=== PATIENT | male | born 1970 | race Two or more races ===

== ENCOUNTER → 2022-09-16 | Outpatient (CLI) | payer MEDICAID | END | disposition home or self-care (01) | LOC: Rad HDHVI 14:50 | PROVIDERS: ATTEND Internal Medicine Cardiovascular Disease | DX: R00.2 Palpitations (principal); R06.02 Shortness of breath | CPT/HCPCS: 93306 ==

== ENCOUNTER → 2022-09-18 | Outpatient (CLI) | payer MEDICAID ==
[~2022-09-18] VITALS: Ht 177.8 cm; Wt 113.4 kg
[~2022-09-18] MED LIST: ADENOSINE 90 MG/30 ML INJ IV ONE; ADENOSINE 95 MG in GIVE UN-DILUTED 0 ML IV ONE
== END | disposition home or self-care (01) ==
LOC: Rad HDHVI 08:53
PROVIDERS: ATTEND Internal Medicine Cardiovascular Disease
DX: R00.2 Palpitations (principal); I87.2 Venous insufficiency (chronic) (peripheral); R06.02 Shortness of breath; R60.0 Localized edema; R60.9 Edema, unspecified; I31.39 Other pericardial effusion (noninflammatory); Z79.899 Other long term (current) drug therapy
CPT/HCPCS: 78452; 93005; 96374; 96375; A9500; J0153

== ENCOUNTER → 2022-09-25 | Outpatient (CLI) | payer MEDICAID | END | disposition home or self-care (01) | LOC: Rad HDHVI 10:21 | PROVIDERS: ATTEND Internal Medicine Cardiovascular Disease | DX: R60.9 Edema, unspecified (principal) | CPT/HCPCS: 93970 ==

== ENCOUNTER → 2022-11-25 | Outpatient (CLI) | payer MEDICAID ==
[~2022-11-25] MED LIST changes: -ADENOSINE 90 MG/30 ML INJ IV ONE; -ADENOSINE 95 MG in GIVE UN-DILUTED 0 ML IV ONE; +FURO40TA4 PO; +METO5TAB5 PO; +POTA-220 PO
[2022-11-25 10:24] VITALS: BP 135/70
[2022-11-25 10:35] VITALS: BP 134/67
[2022-11-25 12:07] LABS: Basophils # (auto) 0.1 10 ^3/uL (0-0.2); Basophils % (auto) 0.8 % (0.0-2.0); Eosinophils # (auto) 0.3 10 ^3/uL (0-0.8); Eosinophils % (auto) 3.1 % (0.0-7.0); Hematocrit 39.1 % (41.0-53.0); Hemoglobin 12.6 g/dL (13.5-17.5); Lymphocytes # (auto) 3.3 10 ^3/uL (0.4-5.4); Lymphocytes % (auto) 33.3 % (10.0-50.0); Mean Corpuscular Hgb Conc. 32.2 g/dL (32.0-36.0); Mean Corpuscular Volume 93.2 fL (80.0-100.0); Monocytes # (auto) 0.6 10 ^3/uL (0-1.3); Monocytes % (auto) 6.4 % (0.0-12.0); Neutrophils # (auto) 5.6 10 ^3/uL (1.6-8.6); Neutrophils % (auto) 56.4 % (37.0-80.0); Red Blood Cells 4.19 10^6/uL (4.5-5.90); Red Cell Distribution Width 15.9 % (11.8-14.3); White Blood Cell 9.9 10^3/uL (4.4-10.8)
[2022-11-25 12:21] LABS: Potassium 4.2 mmol/L (3.5-5.1)
[2022-11-25 12:25] LABS: BUN/Creatinine Ratio 20.4; Calcium 9.8 mg/dL (8.5-10.1)
[2022-11-25 12:34] LABS: INR 0.97 (0.9-1.15); Partial Thromboplastin Time 32.6 sec (24.6-33.4)
== END | disposition home or self-care (01) ==
LOC: Rad HDHVI 10:12
PROVIDERS: ATTEND Internal Medicine Cardiovascular Disease
DX: I50.33 Acute on chronic diastolic (congestive) heart failure (principal)
CPT/HCPCS: 36415; 71046; 80048; 85025; 85610; 85730; 93005; G0463

== ENCOUNTER 2022-11-28 07:49 | Day surgery (SDC) | payer MEDICAID ==
[~2022-11-28] VITALS: Ht 177.8 cm; Wt 113.4 kg
[2022-11-28] MEDS ORDERED: ANGIOMAX 250 MG VIAL IV ONE (10:09)
[2022-11-28] MEDS ORDERED: fentaNYL CITRATE 100 MCG/2 ML VL ONE (10:10)
[2022-11-28] MEDS ORDERED: SODIUM CHL 0.9% 0 ML ONE (10:10)
[2022-11-28] MEDS ORDERED: MIDAZOLAM HCL 2MG/2ML 2ml VIAL (1mg/ml) ONE (10:10)
[2022-11-28] MEDS ORDERED: IOHEXOL 350 MG/ML 100ML IJ ONE (10:17)
[2022-11-28] MEDS ORDERED: LIDOCAINE 2%HCL (LOCAL ANESTH.) INJ 20ML MDV ONE (10:18)
== END 2022-11-28 13:30 | disposition home or self-care (01) ==
LOC: CATH 07:49
PROVIDERS: ATTEND Internal Medicine Cardiovascular Disease
DX: R94.39 Abnormal result of other cardiovascular function study (principal); E66.01 Morbid (severe) obesity due to excess calories; I10 Essential (primary) hypertension; E78.5 Hyperlipidemia, unspecified; Z79.899 Other long term (current) drug therapy; R07.89 Other chest pain; Z20.822 Contact with and (suspected) exposure to COVID-19
CPT/HCPCS: 93458; C1760; C1769; C1894; J1644; J2250; J3010; Q9967; U0003; 99152

== ENCOUNTER → 2024-10-05 | Outpatient (CLI) | payer MEDICAID ==
--- NOTE | 2024-10-05 14:41 | DVHSR ---
APPROVED REPORT EXAM: Two-dimensional and M-mode echocardiogram with Doppler and color Doppler. DIMENSIONS LVDd5.1 (3.8-5.7cm)LA (2D)3.4 (1.9-4.0cm)Aortic Root3.7 (2.0-3.7cm) LVDs3.6 (2.5-4.0cm)LA (MM) (1.9-4.0cm)Aortic Cusp Exc2.1 (1.5-2.0cm) EF (%) 53.8 (55-70%)Rt. Atrium3.8 (1.9-4.0cm)Asc. Aorta cm IVSd1.0 (0.7-1.1cm)RV (D)4.4 (1.8-2.4cm) PWd1.1 (0.7-1.1cm) Mitral Valve MitralMitral Stenosis E wave0.90m/sMV Mean GR.mmHg A wave0.87m/sMV Peak GR.10mmHg E/A ratio1.02D MVAcm2 DECEL [id number] 1/2 [place] Aortic Valve Aortic ValveAortic Stenosis V10.95m/Marco A Mean GR.3mmHg V21.31m/Marco A Peak GR.7mmHg Pulmonic Valve V20.75m/s Tricuspid Valve TR Velocity1.54m/s [id number] LEFT VENTRICLE The Ejection Fraction is 50-55%. ATRIA The left atrial size is normal. The right atrium size is normal. MITRAL VALVE The mitral valve is normal in structure and function. Mitral regurgitation is trace. PULMONIC VALVE The pulmonic valve is not well visualized. TRICUSPID VALVE The tricuspid valve is grossly normal. There is trace tricuspid regurgitation. AORTIC VALVE The aortic valve opens well. No aortic regurgitation is present. GREAT VESSELS The aortic root is normal size. PERICARDIAL EFFUSION There is no pericardial effusion. Conclusion EF 55%
== END | disposition home or self-care (01) ==
LOC: Rad HDHVI 11:03
PROVIDERS: ATTEND Internal Medicine Cardiovascular Disease
DX: I51.7 Cardiomegaly (principal); I50.23 Acute on chronic systolic (congestive) heart failure
CPT/HCPCS: 93306

== ENCOUNTER → 2024-10-15 | Outpatient (CLI) | payer MEDICAID ==
[~2024-10-15] VITALS: Ht 177.8 cm; Wt 107.5 kg
[~2024-10-15] MED LIST changes: +ADENOSINE 90 MG in GIVE UN-DILUTED 0 ML IV ONE; +ADENOSINE 90 MG/30 ML INJ IV ONE
== END | disposition home or self-care (01) ==
LOC: Rad HDHVI 08:07
PROVIDERS: ATTEND Internal Medicine Cardiovascular Disease
DX: Z13.6 Encounter for screening for cardiovascular disorders (principal); I11.0 Hypertensive heart disease with heart failure; I50.33 Acute on chronic diastolic (congestive) heart failure; E78.00 Pure hypercholesterolemia, unspecified; R60.9 Edema, unspecified; I31.39 Other pericardial effusion (noninflammatory); Z82.49 Family history of ischemic heart disease and other diseases of the circulatory system
CPT/HCPCS: 78452; 93005; 96374; 96375; A9500; J0153

== ENCOUNTER 2025-09-16 08:01 | Outpatient (CLI) | payer MEDICAID ==
[~2025-09-16] VITALS: Ht 177.8 cm; Wt 95.3 kg
[~2025-09-16 08:01] MED LIST changes: -ADENOSINE 90 MG in GIVE UN-DILUTED 0 ML IV ONE; -ADENOSINE 90 MG/30 ML INJ IV ONE
[2025-09-16] MEDS ORDERED: ADENOSINE 90 MG/30 ML INJ IV ONE (08:35)
[2025-09-16] MEDS ORDERED: ADENOSINE 80 MG in GIVE UN-DILUTED 0 ML IV ONE (08:45)
== END 2025-09-19 17:00 | disposition home or self-care (01) ==
LOC: Rad HDHVI 08:01
PROVIDERS: ATTEND Internal Medicine Cardiovascular Disease
DX: I11.0 Hypertensive heart disease with heart failure (principal); I50.33 Acute on chronic diastolic (congestive) heart failure; R06.02 Shortness of breath; I31.39 Other pericardial effusion (noninflammatory); I47.10 Supraventricular tachycardia, unspecified; E78.00 Pure hypercholesterolemia, unspecified; R00.1 Bradycardia, unspecified; Z82.49 Family history of ischemic heart disease and other diseases of the circulatory system
CPT/HCPCS: 78452; 93017; A9500; J0153

== ENCOUNTER 2025-09-21 08:41 | Outpatient (CLI) | payer MEDICAID | END 2025-09-21 17:00 | disposition home or self-care (01) | LOC: Rad HDHVI 08:41 | PROVIDERS: ATTEND Internal Medicine Cardiovascular Disease | DX: I51.7 Cardiomegaly (principal); R00.0 Tachycardia, unspecified; R00.1 Bradycardia, unspecified | CPT/HCPCS: 93306 ==

== ENCOUNTER 2025-10-12 12:20 | Outpatient (CLI) | payer MEDICAID | END 2025-10-12 17:00 | disposition home or self-care (01) | LOC: Rad HDHVI 12:20 | PROVIDERS: ATTEND Internal Medicine Cardiovascular Disease | DX: I10 Essential (primary) hypertension (principal); R00.1 Bradycardia, unspecified | CPT/HCPCS: 93880 ==